=== PATIENT | female | born 1950 | race Two or more races ===

== ENCOUNTER 2022-06-16 08:10 | Outpatient (CLI) | payer OTHER | END 2022-06-16 08:16 | disposition home or self-care (01) | LOC: MRI 08:10 | PROVIDERS: ATTEND Internal Medicine Gastroenterology | DX: R10.9 Unspecified abdominal pain (principal); R74.8 Abnormal levels of other serum enzymes; R10.84 Generalized abdominal pain | CPT/HCPCS: 74181 ==